=== PATIENT | male | born 1930 | race Caucasian/White ===

== ENCOUNTER 2016-08-22 06:57 | Day surgery (SDC) | payer MEDICARE, OTHER ==
[2016-08-22] VITALS (13 sets, daily range): BP systolic 122–154; BP diastolic 57–94; PULSE 57–71; RESP 11–18; O2SAT 95–99
[~2016-08-22] VITALS: Ht 177.8 cm; Wt 81.3 kg
[~2016-08-22 06:57] MED LIST: ASPI-973 PO; Bupivacaine Liposome 1.3% 20 mL Inj INFILTRATE ONE; CETI10CA PO; CeFAZolin 2 Gm/50 mL D5W IV Premix IV ONE; DESO15CR10 TOP; Dexamethasone 4 mg/mL Inj IVPUSH PRN; EPHEDrine Sulfate 50 mg/mL Inj IVPUSH PRN; FELO5TAB4 PO; FLUT250D2 IH; HYDROmorphone 1 mg/mL Inj IVPUSH PRN; KTC2C15 TP; LOSA50TA37 PO; Lactated Ringer's 1,000 ML IV SCH; Lactated Ringer's 500 ML IV PRN; METR45CR TOP; MetoCLOpramide 5 mg/mL 2 mL Inj IVPUSH PRN; OMEP20CA11 PO; Ondansetron 2 mg/mL 2 mL Inj IVPUSH PRN; POLY17PO6 PO; Phenylephrine 10,000 mCg/mL Inj IVPUSH PRN; SIMV10TA4 PO; TAMS0.4C98 PO; ZYL100 PO; fentaNYL-PF 50 mCg/mL 2 mL Inj IVPUSH PRN; vitamin d3
[2016-08-22] MEDS ORDERED: EPHEDrine/NS 5 mg/mL 5 mL Syringe ONE (06:58)
[2016-08-22] MEDS ORDERED: fentaNYL-PF 50 mCg/mL 2 mL Inj ONE (06:58)
[2016-08-22] MEDS ORDERED: Ondansetron 2 mg/mL 2 mL Inj ONE (06:58)
[2016-08-22] MEDS ORDERED: Propofol 10,000 mCg/mL 20 mL Inj ONE (06:58)
[2016-08-22] MEDS ORDERED: HYDROmorphone 2 mg/mL Inj ONE (06:58)
[2016-08-22] MEDS: Lactated Ringer's 1,000 ML IV SCH ×2 (07:30→08:59)
--- NOTE | 2016-08-22 08:57 | PCM.HPANE ---
Patient Data Surgeon Admitting Provider: Attending Provider:Stanley Marks MD Primary Care Physician:Other,Physician Other Provider:Bettina Santos Anesthesia Reason for Visit Right Knee Arthritis Ht/WT & BMI Height (Feet): 5 Height (Inches): 10.00 Weight (Kilograms): 81.280 Body Mass Index 25.00 Allergies Coded Allergies: lisinopril (Verified Allergy, Unknown, 08/20/16) promethazine (Verified Allergy, Unknown, 08/20/16) Uncoded Allergies: NSAIDS (Allergy, Unknown, poor kidney function- unable to metabolize, ) Past Anesthesia History Anesthesia History: Denies:: Abnormal Airway, Anesthesia Reactions, Difficult Intubation, Fam Anesthesia Reaction, Fam Malignant Hypertherm, Malignant Hyperthermia Diabetes History Hx Diabetes?: No MRSA MRSA: No Medications Blood Thinner: Aspirin Hypertension Medication: Yes Home Meds Incl Beta Domo: No Reported Medications [vitamin d3] No Conflict CheckUnknown Dose DAILY 08/20/16 Tamsulosin (Flomax)0.4 Mg Capsule0.4 Mg PO DAILY Ref 0 08/20/16 Simvastatin 10 Mg Iarkzj15 Mg PO HS Ref 0 08/20/16 Omeprazole 20 Mg Capsule.dr20 Mg PO DAILY Ref 0 08/20/16 Polyethylene Glycol 3350 (Miralax)17 Gm Powd.pack17 Gm PO DAILY 08/20/16 Metronidazole (Metronidazole Cream)45 Gm Cream..g.1 Applic TOP BID PRN skin irritation #45 GM Ref 0 08/20/16 Losartan Potassium 50 Mg Strlgi32 Mg PO DAILY 08/20/16 Ketoconazole 15 Gm Cream..g.15 Gm TP PRN skin irritation 08/20/16 Fluticasone Propionate (Flovent Diskus)250 Mcg Disk.w.dev1 Puff IH BID #1 INHALER Ref 0 08/20/16 Felodipine ER 5 Mg Tab.er.24h5 Mg PO DAILY Ref 0 08/20/16 Desoximetasone (Desoximetasone Cream)15 Gm Cream..g.1 Applic TOP BID #1 TUBE Ref 0 08/20/16 Cetirizine HCl (Zyrtec)10 Mg Isymhhj74 Mg PO HS #30 CAPSULE Ref 0 08/20/16 Aspirin 81 Mg Vzfckl46 Mg PO DAILY Ref 0 08/20/16 Allopurinol 100 Mg Deebto233 Mg PO DAILY Ref 0 08/20/16 History History of ENT Problems?: Yes HEENT History: Positive for:: Cataracts (bilateral surgery) Dysphagia (hiatal hernia- occ dilations) Denies:: Abnormal Airway Difficult Intubation Glaucoma Sinus Problem TMJ Denture Type: None Teeth Condition: Within Normal Limits Hx of Heart Problems?: Yes Cardiovascular History: Positive for:: Hypertension Denies:: AICD Abdominal Aortic Aneurism Atrial Fibrillation Cardiac Surgery Chest Pain Congestive Heart Failure Coronary Artery Disease Edema Heart Murmur Irregular Heartbeat Pacemaker Peripheral Vascular Rheumatic Fever Thrombophlebitis Valvular Heart Disease Hx of Respiratory Problem?: Yes Respiratory History: Positive for:: Pneumonia (hx of ) Use of Inhalers / NEBS Denies:: Asthma ("resolved") COPD Emphysema Oxygen Administration Tuberculosis Use of C-PAP Machine Hx Neurologic Problems?: Yes Neurological History: Positive for:: CVA (around 20 years ago- sx resolved) Denies:: Headaches Multiple Sclerosis Parkinson's Disease Seizures TIA Hx of GI Problems?: Yes Hx of Problems?: Yes Genitourinary History: Positive for:: Kidney Stones (hx of surgery for one stone "long ago" ) Other Pertinent History: hx of nephrectomy- renal ca Male Hx: Positive for:: Prostate Problems (hx of turp 20 years ago) Denies:: Scrotal Mass Testicular Surgery Skin History: Denies:: History Skin Disorders? 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 Blood Transfusions Hx Diabetes: No Hx Alcohol Use: YesAlcoholic Drinks Per Day: 2-3 drinks dailyHx Substance Use : NoHave You Smoked inLast 12 mo: No Stop/Bang S-Snoring: Do You Snore Loudly: No T-Tired: feel tired, fatigued: No O-Obsered: Observed not breath: No P-Blood Pressure: treated: Yes B- Body Mass Index > 35 kg/m2: No A- Age over 50: Yes N- Neck Large Circumference: No G- Gender Male: Yes MICKEY Total Score: 3 Risk Assessment Category Category 1A: Patient has history of documented sleep apnea, and HAS NOT received any narcotic, sedative or anesthesia administration during this stay. Category 1B: Patient has history of documented sleep apnea, and HAS received any narcotic , sedative or anesthesia administration during this stay Category 2: Patient has SUSPECTED Obstructive Sleep Apnea, and HAS received any narcotic , sedative or anesthesia administration during this stay. Category 3: Patient has SUSPECTED Obstructive Sleep Apnea and HAS NOT received narcotic, sedative or anesthesia administration during this stay. Category 4: Outpatient in Procedural Areas with known sleep apnea or who screen positive for High Risk via the STOP/BANG questionnaire. Exam Exam Vital Signs Vital Signs Date Time Temp Pulse Resp B/P Pulse Ox O2 Delivery O2 Flow Rate FiO2 08/22/16 07:26 36.0 71 16 153/86 98 Room Air General Appearance: Alert, Oriented X3, Cooperative, No Acute Distress HEENT/AIRWAY: MP 3 Lungs: Clear to Auscultation Heart: Exam Unremarkable Meds/Labs/Diagnostics Admission Meds Current Medications Lactated Ringer's (Lr) 1,000 ml @ 120 mls/hr Q8H20M IV Last administered on t 07:30; Start 08/22/16 at 05:00; Stop 08/22/16 at 13:19 Plan Impression Patient chart reviewed, patient interviewed and anesthestic plan with risks, benefits, and alternatives discussed, and informed consent obtained. ASA Physical Status: ASA3 Severe Disease (CKD) Anesthetic Plan: GA Bene/Risks/Altern/Consents: Yes HP Complete Prior to Induction: Yes Xavier Valdivia MD Aug 22, 2016 07:38
[2016-08-22] MEDS ORDERED: Gentamicin 40 mg/mL 2 mL Inj IRRIGATION ONE (09:29)
[2016-08-22] MEDS ORDERED: Bupivacaine-MPF 0.25% 30 mL Inj INFILTRATE ONE (09:38)
[2016-08-22] MEDS ORDERED: oxyCODONE-Acetamin 5-325 mg Tablet PO PRN (10:25)
[2016-08-22] MEDS ORDERED: hydrOXYzine Pamoate 25 mg Capsule PO PRN (10:25)
[2016-08-22] MEDS ORDERED: Acetaminophen IV 1,000 MG in IV Premix 1 EACH IV ONE (11:00)
--- NOTE | 2016-08-22 11:02 | PCM.ANEP1 ---
Post Anesthesia PACU Phase 1 Assessment Vital Signs Vital Signs Date Time Temp Pulse Resp B/P Pulse Ox O2 Delivery O2 Flow Rate FiO2 08/22/16 11:00 36.6 68 12 130/81 96 Nasal Cannula 3 08/22/16 10:50 69 18 132/78 96 Nasal Cannula 3 08/22/16 10:45 69 11 122/83 96 Nasal Cannula 3 08/22/16 10:40 69 12 132/73 95 Nasal Cannula 3 08/22/16 10:35 36.8 129/57 08/22/16 07:26 36.0 71 16 153/86 98 Room Air Anesthetic Administered: GA Level of Alertness: Sleeping, hard to arouse PATEL's with Equal Strength: Yes Pain: No Nausea or Vomiting: No CV Function & Hydration Stable: Yes Airway Device: Oxygen Delivery: Simple Mask Lungs: Clear to Auscultation Dermatome Level: Full Sensation PACU Phase 2 Assessment Complications: Yes Patient Instructions Provided: N/A Xavier Valdivia MD Aug 22, 2016 11:02
--- NOTE | 2016-08-22 11:55 | DRSVH ---
PROCEDURE: X-RAY RIGHT KNEE, ONE OR TWO VIEWS ([id number]) INDICATIONS: POST OP TECHNIQUE: 2 view(s) of the knee acquired. COMPARISON: None. FINDINGS: Bones: Patient is status post knee joint unicondylar arthroplasty. Hardware components are in expec mag positions. Visualized bony structures are intact. Soft tissues: Overlying postoperative changes are noted. IMPRESSION: Expected postsurgical change related to right knee unicondylar arthroplasty. Dictated by: Emily Roth MD, PhD on 08/22/2016 at 11:53 Approved by: Emily Roth MD, PhD on 08/22/2016 at 11:54
--- NOTE | 2016-08-22 12:12 | OP ---
[address] [address] OPERATIVE REPORT PATIENT: KIRT POTTS : 1930 MR#: [id number] ADMIT: 08/22/2016 JOB ID: [id number] DATE OF SURGERY: 08/22/2016 PREOPERATIVE DIAGNOSIS(ES): Right medial compartment osteoarthritis. POSTOPERATIVE DIAGNOSIS(ES): Right medial compartment osteoarthritis. PROCEDURE: Right medial compartment arthroplasty. SURGEON: Stanley Marks MD. FUR MIXER OPERATOR: Natali Contreras PA-C. COMPLICATIONS: None. INDICATIONS: This gentleman has progressive disabling pain associated with right medial compartment osteoarthritis. He elects for a unicompartmental knee arthroplasty. He understands and accepts the potential for risks and complications, which include but is not limited to infection, thromboembolic, neurovascular events, as well as potential for implant failure and progressive arthritis and resurfaced compartments. Understanding this, he wishes to proceed. DESCRIPTION OF PROCEDURE: The patient is prepped and draped in the usual sterile fashion. An anteromedial approach was made to the knee. Dissection was carried down. Frontal bossing was removed. Patellar osteophyte was removed. The tibial guide was assembled and a proximal tibial cut was made. Spacer block utilized. Inadequate decompression was noted initially and a 2 mm re-cut was required. The spacer block was then placed, 9 mm spacer block, distal femoral cut was made. Calipered 6 mm cut was noted. The femur was sized to a 6 chamfer block fixed in appropriate position. Rotation drill holes and chamfer cuts were made. The tibia was sized to an E, fixed in appropriate position. Rotation drill holes were utilized. All meniscal tissue and osteophytes were removed. Trial reduction was performed and a 9 mm polyethylene was chosen. Excellent tracking and alignment was achieved. Pressurized lavage was followed by pressurized cementation of the components. Excess cement was removed during the curing process. Final construct was assembled with a 9 mm poly snapped securely into place. The tourniquet was let down. Hemostasis was achieved. Deep closure with #2 Quill deep, followed by 2-0 Vicryl, 3-0 and a 4-0 intracuticular stitch. Patient was taken to the recovery room in stable condition. He tolerated the procedure well. There were no complications.
== END 2016-08-22 23:59 | disposition home or self-care (01) ==
LOC: SAS 06:57
PROVIDERS: ATTEND Orthopaedic Surgery
DX: M17.11 Unilateral primary osteoarthritis, right knee (principal); I12.9 Hypertensive chronic kidney disease with stage 1 through stage 4 chronic kidney disease, or unspecified chronic kidney disease; I25.10 Atherosclerotic heart disease of native coronary artery without angina pectoris; E78.5 Hyperlipidemia, unspecified; G47.33 Obstructive sleep apnea (adult) (pediatric); N40.0 Benign prostatic hyperplasia without lower urinary tract symptoms; J45.909 Unspecified asthma, uncomplicated; K57.30 Diverticulosis of large intestine without perforation or abscess without bleeding; N18.3 Chronic kidney disease, stage 3 (moderate); R91.8 Other nonspecific abnormal finding of lung field; K44.9 Diaphragmatic hernia without obstruction or gangrene; Z85.51 Personal history of malignant neoplasm of bladder; Z85.528 Personal history of other malignant neoplasm of kidney; Z85.828 Personal history of other malignant neoplasm of skin; Z79.82 Long term (current) use of aspirin; Z86.73 Personal history of transient ischemic attack (TIA), and cerebral infarction without residual deficits
CPT/HCPCS: 27446; 73560; 93005; C1713; C1776; J0690; J1170; J1580; J2405; J3010; J7120